=== PATIENT | female | born 1945 ===

== ENCOUNTER 2018-04-18 05:35 | Day surgery (SDC) | payer OTHER ==
[~2018-04-18 05:35] MED LIST: COZAAR50 MG PO; LOPRESSOR HCT1 EACH PO; PRILOSEC OTC20 MG PO
== END 2018-04-18 13:00 | disposition home or self-care (01) ==
LOC: CIR.AMB 05:35
DX: S61.421A Laceration with foreign body of right hand, initial encounter (principal)